=== PATIENT | male | born 1940 | race Caucasian/White ===

== ENCOUNTER 2016-06-20 09:38 | Day surgery (SDC) | payer MEDICARE, BC ==
[~2016-06-20 09:38] MED LIST: ASPIR 8181 M1 PO; BIPAP INH; CLARITIN10 M6 PO; FLOMAX0.4 M1 PO; GLUCOPHAGE500 M3 PO; LISINOPRIL5 M1 PO; PROZAC20 M3 PO; REQUIP3 M1 PO; SINGULAIR10 M1 PO
[2016-06-20 11:16] LABS: BASO % 0.7 % (0-2); EOS % 7.6 % (0-7); EOSINOPHIL ABSOLUTE COUNT 0.4 tho/cmm (0.0-0.7); HCT-HEMATOCRIT 36.4 % (36.0-53.5); HGB-HEMOGLOBIN 12.3 gm/dl (13.5-17.0); IMMATURE GRANULOCYTES ABSOLUTE 0.01 tho/cmm (0-0.03); IMMATURE GRANULOCYTES PERCENT 0.2 % (0-0.3); LYMPH % 16.1 % (20-45); LYMPH ABSOLUTE COUNT 0.9 tho/cmm (0.8-4.5); MCH (MEAN CORPUSCULAR HGB) 30.7 pg (28.0-32.0); MCHC MEAN CORPUSCULAR HGB CONC 33.8 % (32.0-36.0); MCV (MEAN CELL VOLUME) 90.8 fl (82.0-96.0); MEAN PLATELET VOLUME 10.6 cmc (9.4-12.4); MONO % 11.1 % (0-12); MONOCYTE ABSOLUTE COUNT 0.6 tho/cmm (0.0-1.2); NEUTROPHIL ABSOLUTE COUNT 3.5 tho/cmm (1.6-8.0); NEUTROPHIL-AUTOMATED 3.5 tho/cmm (1.6-8.0); NEUTROPHILS % 64.3 % (40-80); PLATELET COUNT 178 tho/cmm (150-450); RED BLOOD COUNT 4.01 mil/cmm (4.40-5.70); RED CELL DISTRIBUTION WIDTH 12.2 % (12.4-16.4); WHITE BLOOD COUNT 5.4 tho/cmm (4.0-10.0)
[2016-06-20 11:20] LABS: INR 1.1 INR (0.9-1.1); PROTHROMBIN TIME 12.2 SECONDS (9.0-13.6)
== END 2016-06-20 14:55 ==
LOC: US 09:38 → SHSC 09:39
PROVIDERS: Internal Medicine Medical Oncology
PROC: 0FB23ZX Excision of Left Lobe Liver, Percutaneous Approach, Diagnostic (ICD-10-PCS; principal; 2016-06-20)
DX: C78.7 Secondary malignant neoplasm of liver and intrahepatic bile duct (principal); E11.9 Type 2 diabetes mellitus without complications; G47.30 Sleep apnea, unspecified; Z85.528 Personal history of other malignant neoplasm of kidney; Z85.038 Personal history of other malignant neoplasm of large intestine; Z90.49 Acquired absence of other specified parts of digestive tract; Z90.5 Acquired absence of kidney; Z87.891 Personal history of nicotine dependence; Z79.899 Other long term (current) drug therapy; Z98.890 Other specified postprocedural states
CPT/HCPCS: J2250; J3010; J7030